=== PATIENT | female | born 1945 | race Caucasian/White ===

== ENCOUNTER 2022-04-09 12:29 | Inpatient (IN) | payer MEDICARE, MEDICAID ==
[~2022-04-09] VITALS: Ht 162.6 cm; Wt 68.0 kg
[2022-04-09] MEDS ORDERED: IV NS 0.9% 1,000 ML BAG IV ONE (13:00)
--- NOTE | 2022-04-09 13:09 | NUR ---
COVID SWAB COLLECTED AND SENT TO LAB
--- NOTE | 2022-04-09 13:25 | NUR ---
PHLEB AT BEDSIDE FOR BLOOD DRAW
--- NOTE | 2022-04-09 13:30 | NUR ---
MANAGER DRILLING AT BEDSIDE FOR XRAY
[2022-04-09] MEDS ORDERED: FERR325T23 PO (13:36)
[2022-04-09] MEDS ORDERED: PANT40SU PO (13:36)
[2022-04-09] MEDS ORDERED: DOCU-141 PO (13:36)
[2022-04-09] MEDS ORDERED: METO25TA6 PO (13:36)
[2022-04-09] MEDS ORDERED: AMLO5TAB4 PO (13:36)
[2022-04-09] MEDS ORDERED: HYDR-4076 PO (13:36)
[2022-04-09] MEDS ORDERED: LOSA50TA39 PO (13:36)
[2022-04-09] MEDS ORDERED: BISA10SU11 RC (13:36)
[2022-04-09] MEDS ORDERED: EZET10TA16 PO (13:36)
[2022-04-09] MEDS ORDERED: TRAV5DRO11 EACHEYE (13:36)
[2022-04-09] MEDS ORDERED: DEXT15DR6 EACHEYE (13:36)
[2022-04-09] MEDS ORDERED: NA P133E RC (13:36)
[2022-04-09] MEDS ORDERED: MAGN400O6 PO (13:36)
[2022-04-09] MEDS ORDERED: METF-440 PO (13:36)
[2022-04-09] MEDS ORDERED: RIVA10TA PO (13:36)
[2022-04-09] MEDS ORDERED: CHOL500052 PO (13:36)
[2022-04-09] MEDS ORDERED: MULT-447 PO (13:36)
[2022-04-09] MEDS ORDERED: ACET325T53 PO (13:36)
[2022-04-09 13:47] LABS: BASOPHILS % (AUTO) 0.3 % (0.0-2.0); EOSINOPHILS % (AUTO) 3.6 % (0.0-6.0); HEMATOCRIT 35 % (33-45); HEMOGLOBIN 10.5 g/dL (11.5-14.8); LYMPHOCYTES # (AUTO) 3.8 K/uL (0.8-4.8); LYMPHOCYTES % (AUTO) 33.6 % (20.0-44.0); MEAN CORPUSCULAR HGB CONC 30 g/dl (31.0-36.0); MEAN CORPUSCULAR VOLUME 116 fL (82-100); MONOCYTES # (AUTO) 0.6 K/uL (0.1-1.30); MONOCYTES % (AUTO) 5.3 % (2.0-12.0); NEUTROPHILS # (AUTO) 6.5 K/uL (1.8-8.9); NEUTROPHILS % (AUTO) 57.2 % (43.0-81.0); PLATELET COUNT (AUTO) 428 K/uL (150-450); RED BLOOD CELL COUNT(AUTO) 3.06 MIL/uL (4.0-5.2); WHITE BLOOD COUNT (AUTO) 11.4 K/uL (4.3-11.0)
[2022-04-09 15:04] LABS: BILIRUBIN,DIRECT 0.3 mg/dL (0.0-0.2); BILIRUBIN,TOTAL 0.6 mg/dL (0.2-1.0); CALCIUM, SERUM 7.2 mg/dL (8.5-10.1); CREATININE 1.1 mg/dL (0.6-1.3); POTASSIUM 3.9 mmol/L (3.5-5.1); TOTAL PROTEIN, SERUM 5.6 g/dL (6.4-8.2)
[2022-04-09 15:07] LABS: ALBUMIN 0.9 g/dL (3.4-5.0)
--- NOTE | 2022-04-09 16:03 | NUR ---
URINE COLLECTED AND SENT TO THE LAB
[2022-04-09 16:48] LABS: BILIRUBIN,URINE 1+ (NEGATIVE); COLOR,URINE YELLOW (YELLOW); LEUKOCYTE ESTERASE ,URINE NEGATIVE (NEGATIVE); NITRITE, URINE NEGATIVE (NEGATIVE); PH,URINE 5.5 (5.0-8.0); PROTEIN,URINE NEGATIVE (NEGATIVE); UGLUCOSE NEGATIVE (NEGATIVE); UROBILINOGEN,URINE 0.2 EU/dL (0.2)
--- NOTE | 2022-04-09 16:50 | NUR ---
ROOM 310-2
[2022-04-09 17:01] LABS: BACTERIA,URINE RARE /HPF (None Seen); RBC,URINE 0-2 /HPF (0-2); SQUAMOUS EPITHELIAL CELL,UR 0-2 /HPF (None Seen); WBC,URINE 0-2 /HPF (0-3)
--- NOTE | 2022-04-09 17:10 | NUR ---
PT REPORT GIVEN TO RUBENS PICKARD
[2022-04-09 17:14] LABS: BAND % (MANUAL) 1 % (0.0-5.0); LYMPHOCYTES % (MANUAL) 22 % (16-48); MONOCYTES % (MANUAL) 3 % (0-11.0); NEUTROPHILS % (MANUAL) 74 (42-76)
--- NOTE | 2022-04-09 17:14 | NUR ---
PT TRANSFERRED TO 310-2 VIA [facility] ACLS PROTOCOL. WARM HANDOFF GIVEN TO RUBENS PICKARD.
[2022-04-09 17:15] VITALS: BP 89/68
[2022-04-09] MEDS ORDERED: ACETAMINOPHEN 325 MG TABLET PO PRN (18:00)
[2022-04-09] MEDS ORDERED: CEFTRIAXONE 1GM BAG (ER ONLY) 50 ML IV ONE (18:00)
[2022-04-09] MEDS ORDERED: MAGNESIUM HYDROXIDE 30 ML UDC PO PRN (18:00)
[2022-04-09] MEDS ORDERED: AZITHROMYCIN 500 MG in IV D5W 250 ML IV ONE (18:00)
[2022-04-09] MEDS ORDERED: Z GUARD REMEDY 4 OZ OINT TP PRN (18:00)
[2022-04-09] MEDS ORDERED: ONDANSETRON HCL/PF 4 MG/2 ML VIAL IVP PRN (18:00)
--- NOTE | 2022-04-09 19:00 | NUR ---
TEL RN ADMITTING NOTES RECIEVED PATIENT FROM ER VIA [place] , WITH DX OF FAILURE TO THRIVE , FULL CODE , A/O X0 , NON VERBAL AND OPEN EYES ONLY , ROOM AIR AND TOLERATED WELL , NO OB OR DISTRESS NOTED AND NO S/S OF PAIN AND DISCOMFORT NOTED , BODY ASSESSMENT DONE AND PHOTOS WERE TAKEN , KEPT CLEAN AND DRY , V/S TAKEN AND RECORDED , TELE MONITOR ATTACHED READING OF SR WITH BBB PAC AND HR OF 82 , SACRAL DTI , BOTH HEEL REDNESS , LEFT FOOT DTI SITE #1 AND 2 AND RIGHT FOOT DTI SITE #1 AND 2 AND WOUND CONSULT ORDERED , IV ACCESS ON LAC #20G , SAFETY PRECAUTIONS PROVIDED , SR UP X 2 , KEPT COMFORTABLE TO BED , FAMILY AT BEDSIDE , ALL NEEDS ATTENDED , ENDORSED TO NEXT SHIFT
[2022-04-09 20:00] VITALS: BP 149/97
--- NOTE | 2022-04-09 20:00 | NUR ---
MS TIE BUCKER INITIAL NOTES RECEIVED PT LYING IN BED WITH EYES CLOSED BUT AROUSE EASILY WHEN YOU CALLED HER NAME AND TOUCH. RESPIRATION EVEN AND NON-LABORED. SKIN WARM TO TOUCH. NOT IN ANY ACUTE DISTRESS NOTED. RE-ORIENTED WHERE SHE AT AND HOW TO USED THE CALL LIGHT SYSTEM. KEPT HER WARM AND COMFORTABLE AT ALL TIMES. BED IN LOW AND LOCK IN POSITION WITH SIDE RAILS X2 UP AND BED ALARM SET FOR SAFETY. WILL CONTINUE MONITORING.
[2022-04-09] MEDS: IV D5/0.45 NACL 1,000 ML IV PRN (21:22)
[2022-04-09] MEDS: EZETIMIBE 10 MG TABLET PO SCH (21:36)
[2022-04-09] MEDS: hydrALAZINE HCL 25 MG TABLET PO SCH (21:36)
[2022-04-09] MEDS: HEPARIN SODIUM, PORCINE 5000 UNITS/1 ML VIAL SQ SCH (21:37)
[2022-04-09] MEDS: CEFTRIAXONE 1 G in IV D5W 50 ML IV SCH (21:52)
[2022-04-09] MEDS ORDERED: TRAVOPROST (BENZALKONIUM) 2.5 ML BOTTLE EACHEYE SCH (22:00)
--- NOTE | 2022-04-10 | NUR ---
GLOBAL CEO NOTES PT SLEEPING COMFORTABLY IN BED WITHOUT ANY ACUTE DISTRESS NOTED. IVF STILL INFUSING. KEPT HER WARM AND COMFORTABLE AT ALL TIMES. WILL CONTINUE MONITORING.
[2022-04-10] MEDS ORDERED: KEY,NONCONTROL,TO KEEP IN PYXI 1 EA MC ONE (01:10)
--- NOTE | 2022-04-10 06:54 | NUR ---
MS MINI LAB OPERATOR CLOSING NOTES PT BACK TO SLEEP AFTER SPONGES BATH RENDERED . REPOSITION HER FOR COMFORT. STABLE THROUGHOUT THE NIGHT. NO SIGNS OF ANY ACUTE DISTRESS NOTED. IVF D51/2 NS AT 50ML/HR STILL INFUSING . KEPT HER WARM AND COMFORTABLE AT ALL TIMES. BED IN LOW AND LOCK IN POSITION WITH SIDE RAILS X3 UP AND BED ALARM SET FOR SAFETY. WILL ENDORSE TO AM NURSE FOR CONTINUITY OF CARE.
--- NOTE | 2022-04-10 07:20 | NUR ---
ms rn received on bed, sleeping easily arousable, not in any form of distress,respirations even and unlabored, no son noted, lungs are diminish sounds,no s/sof pain at this time, repositioned for comfort,all needs attended.
--- NOTE | 2022-04-10 08:20 | NUR ---
ms rn was seen by speesch therapist, no way patient can swallow.
[2022-04-10 08:32] VITALS: BP 112/66
--- NOTE | 2022-04-10 08:56 | NUR ---
WOUND CARE CONSULT: PT PRESENTS WITH UPPER EXTREMITY DISCOLORATION, SACRAL SCARRING WHICH IS FRAGILE AND HAS SURROUNDING INTACT DEEP TISSUE INJURY, DEEP TISSUE INJURIES TO FEET AND LOWER EXTREMITY CONTRACTURES. DR ROY AND DR OCHOA CALLED FOR SURGICAL AND DPM CONSULTS. DISCUSSED SKIN PROTECTION WITH NURSING STAFF. PT TO BE PLACED ON NEIL ISOFLEX LOW AIRLOSS BED. MD IN AGREEMENT WITH PLAN OF CARE.
[2022-04-10] MEDS: FERROUS SULFATE UDC 300 MG/5 ML UDC PO SCH (09:00)
[2022-04-10] MEDS: MULTIVIT W/MINERALS 1 TAB TABLET PO SCH (09:00)
[2022-04-10] MEDS: POLYVINYL ALCOHOL 15 ML BOTTLE EACHEYE SCH ×3 (09:00→18:59)
[2022-04-10] MEDS: hydrALAZINE HCL 25 MG TABLET PO SCH ×4 (09:00→20:51)
[2022-04-10] MEDS: LOSARTAN POTASSIUM 50 MG TABLET PO SCH ×2 (09:00→17:00)
[2022-04-10] MEDS: DOCUSATE SODIUM 100 MG CAPSULE PO SCH ×2 (09:00→17:00)
[2022-04-10] MEDS ORDERED: CHOLECALCIFEROL 1,000 UNIT TABLET (VIT D3) PO SCH (09:00)
[2022-04-10] MEDS: AMLODIPINE BESYLATE 5 MG TABLET PO SCH (09:00)
[2022-04-10] MEDS ORDERED: PANTOPRAZOLE 40 MG/PACK PACK PO SCH (09:00)
[2022-04-10] MEDS: RIVAROXABAN 10 MG TABLET PO SCH ×2 (09:00→17:00)
[2022-04-10] MEDS: METOPROLOL TARTRATE 25 MG TABLET PO SCH ×2 (09:00→17:00)
[2022-04-10] MEDS: METFORMIN 500 MG TABLET PO SCH ×2 (09:00→17:00)
--- NOTE | 2022-04-10 09:00 | NUR ---
ms rn held medications at this time, patient's daughter, wanted to speak w/ tyson, gave daughter's tel number,tyson will call her,.
[2022-04-10 09:27] LABS: BASOPHILS % (AUTO) 0.3 % (0.0-2.0); EOSINOPHILS % (AUTO) 2.7 % (0.0-6.0); HEMATOCRIT 32 % (33-45); HEMOGLOBIN 9.8 g/dL (11.5-14.8); LYMPHOCYTES # (AUTO) 2.6 K/uL (0.8-4.8); LYMPHOCYTES % (AUTO) 19.5 % (20.0-44.0); MEAN CORPUSCULAR HGB CONC 30 g/dl (31.0-36.0); MEAN CORPUSCULAR VOLUME 112 fL (82-100); MONOCYTES # (AUTO) 0.5 K/uL (0.1-1.30); MONOCYTES % (AUTO) 3.8 % (2.0-12.0); NEUTROPHILS % (AUTO) 73.7 % (43.0-81.0); PLATELET COUNT (AUTO) 430 K/uL (150-450); RED BLOOD CELL COUNT(AUTO) 2.87 MIL/uL (4.0-5.2); WHITE BLOOD COUNT (AUTO) 13.6 K/uL (4.3-11.0)
[2022-04-10] MEDS: HEPARIN SODIUM, PORCINE 5000 UNITS/1 ML VIAL SQ SCH ×2 (09:28→20:51)
[2022-04-10] MEDS: PANTOPRAZOLE 40 MG VIAL IV SCH (09:28)
[2022-04-10 09:38] LABS: CALCIUM, SERUM 6.9 mg/dL (8.5-10.1); CREATININE 1.1 mg/dL (0.6-1.3); MAGNESIUM 2.3 mg/dL (1.8-2.4); POTASSIUM 3.2 mmol/L (3.5-5.1)
[2022-04-10 09:50] LABS: THYROID STIMULATING HORMONE 1.829 uIU/mL (0.358-3.74)
--- NOTE | 2022-04-10 11:10 | NUR ---
ms rn spoke w/ clark, daughter, will let tyson call her.
--- NOTE | 2022-04-10 16:00 | NUR ---
ms rn midline placed to right upper arm w/ good venous return.
[2022-04-10 16:21] VITALS: BP 123/68
--- NOTE | 2022-04-10 19:35 | NUR ---
MS RN NOTES RECEIVED LAYING ON BED ON LEFT SIDE POSITION,BREATHING NON LABORED,NON VERBAL,OPEN EYES.NPO EXCEPT MEDS,PRESENT IVF INFUSING ON LEFT AC VIA IV PUMP,SITE PATENT,NO S/S OF INFILTRATION NOTED.WILL REPOSITION PER PROTOCOL,WILL CONTINUE TO MONITOR STATUS.
[2022-04-10 20:00] VITALS: BP 131/68
[2022-04-10] MEDS: CEFTRIAXONE 1 G in IV D5W 50 ML IV SCH (20:15)
[2022-04-10] MEDS: IV D5/0.45 NACL 1,000 ML IV PRN (20:17)
--- NOTE | 2022-04-10 21:00 | NUR ---
MS RN NOTES SUNNI APRESOLINE 25MG PO AND ZETIA 10MG PO HELD,PATIENT FAILED SWALLOW EVAL PER SPEECH THERAPIST.PRONE TO ASPIRATION
[2022-04-10] MEDS: LATANOPROST EYE DROP 0.005% 2.5 ML BOTTLE EACHEYE SCH (21:10)
[2022-04-10] MEDS: EZETIMIBE 10 MG TABLET PO SCH (21:11)
--- NOTE | 2022-04-11 07:02 | NUR ---
MS RN NOTES NO SIGNIFICANT CHANGE IN STATUS.IVF INFUSING WELL ON LFA MIDLINE.MORNING CARE RENDERED,KEPT NPO,ASPIRATION PRECAUTION.IN NO ACUTE DISTRESS.
--- NOTE | 2022-04-11 07:15 | NUR ---
ms rn patient on bed, awake, non verbal patient, not in any form of distress, respirations even and unlabored,no sob noted, left arm edema noted, repositioned for comfort,all needs attended.
[2022-04-11 08:28] VITALS: BP 122/68
[2022-04-11 08:33] LABS: BASOPHILS % (AUTO) 0.4 % (0.0-2.0); EOSINOPHILS % (AUTO) 4.2 % (0.0-6.0); HEMATOCRIT 28 % (33-45); HEMOGLOBIN 8.7 g/dL (11.5-14.8); LYMPHOCYTES # (AUTO) 2.9 K/uL (0.8-4.8); LYMPHOCYTES % (AUTO) 26.9 % (20.0-44.0); MEAN CORPUSCULAR HGB CONC 32 g/dl (31.0-36.0); MEAN CORPUSCULAR VOLUME 110 fL (82-100); MONOCYTES # (AUTO) 0.6 K/uL (0.1-1.30); MONOCYTES % (AUTO) 5.5 % (2.0-12.0); NEUTROPHILS # (AUTO) 6.7 K/uL (1.8-8.9); PLATELET COUNT (AUTO) 371 K/uL (150-450); RED BLOOD CELL COUNT(AUTO) 2.51 MIL/uL (4.0-5.2); WHITE BLOOD COUNT (AUTO) 10.6 K/uL (4.3-11.0)
--- NOTE | 2022-04-11 08:50 | NUR ---
ms rn received a critical k result,na and chloride, tyson angela made aware.
[2022-04-11 08:57] LABS: CREATININE 1.1 mg/dL (0.6-1.3); PHOSPHORUS 2.7 mg/dL (2.5-4.9)
[2022-04-11] MEDS: MULTIVIT W/MINERALS 1 TAB TABLET PO SCH (09:00)
[2022-04-11] MEDS: LOSARTAN POTASSIUM 50 MG TABLET PO SCH ×2 (09:00→16:36)
[2022-04-11] MEDS: METFORMIN 500 MG TABLET PO SCH ×2 (09:00→17:00)
[2022-04-11] MEDS: FERROUS SULFATE UDC 300 MG/5 ML UDC PO SCH (09:00)
[2022-04-11] MEDS: RIVAROXABAN 10 MG TABLET PO SCH ×2 (09:00→17:00)
[2022-04-11] MEDS: METOPROLOL TARTRATE 25 MG TABLET PO SCH ×2 (09:00→16:36)
[2022-04-11] MEDS: DOCUSATE SODIUM 100 MG CAPSULE PO SCH ×2 (09:00→17:00)
[2022-04-11] MEDS: AMLODIPINE BESYLATE 5 MG TABLET PO SCH (09:00)
[2022-04-11] MEDS: hydrALAZINE HCL 25 MG TABLET PO SCH ×4 (09:00→21:00)
[2022-04-11 09:09] LABS: POTASSIUM 2.8 mmol/L (3.5-5.1)
[2022-04-11] MEDS: PANTOPRAZOLE 40 MG VIAL IV SCH (09:53)
[2022-04-11] MEDS: HEPARIN SODIUM, PORCINE 5000 UNITS/1 ML VIAL SQ SCH ×2 (09:54→21:19)
--- NOTE | 2022-04-11 10:00 | NUR ---
ms rn other daughter in the room asking to call clark first before ngt insertion, called clark will wait to call back.
[2022-04-11] MEDS: ENSURE CLEAR 237 ML LIQUID (MIX BERRY) PO SCH ×3 (11:00→19:00)
[2022-04-11] MEDS ORDERED: POTASSIUM CL. PREMIX PERIPHER. 50 ML IV SCH (11:00)
--- NOTE | 2022-04-11 11:00 | NUR ---
ms anusha mehta texted back w/ new orders made and carried out.
[2022-04-11] MEDS: POLYVINYL ALCOHOL 15 ML BOTTLE EACHEYE SCH ×3 (11:14→16:55)
[2022-04-11] MEDS: Potassium Chloride 20 MEQ in IV D5W 1,000 ML IV SCH (12:23)
--- NOTE | 2022-04-11 16:00 | NUR ---
ms rn spoke w/ daughter Katelyn , that we need to insert ngt to her mom, for water therapy,na is high and was agreed.
[2022-04-11 16:10] VITALS: BP 95/50
--- NOTE | 2022-04-11 17:29 | NUR ---
ms anusha ngt inserted,called xray for placement confirmation.
--- NOTE | 2022-04-11 18:05 | NUR ---
ms rn waiting for xray result.
--- NOTE | 2022-04-11 18:17 | NUR ---
ms rn held b/p meds, b/p on lower side, held colace, having loose stools, held xarelto, needs to verify md, patient already on heparin q 12 hours, held glucophage, patient not eating,will monitor patient.
--- NOTE | 2022-04-11 19:30 | NUR ---
MS RN OPENING NOTES Received patient on bed, awake and non verbal. No any signs of distress noted. Respirations even and unlabored. No sob noted. Safety measures given with bed on low position and locked. Side rails up x 2. Call light placed within reach. Will continue the plan of care.
[2022-04-11] MEDS: CEFTRIAXONE 1 G in IV D5W 50 ML IV SCH (19:31)
[2022-04-11 20:00] VITALS: BP 100/55
--- NOTE | 2022-04-11 21:00 | NUR ---
MS RN NOTES Withheld bp meds due to low bp
[2022-04-11] MEDS: LATANOPROST EYE DROP 0.005% 2.5 ML BOTTLE EACHEYE SCH (21:18)
[2022-04-11] MEDS: EZETIMIBE 10 MG TABLET PO SCH (21:19)
[2022-04-12] MEDS: Potassium Chloride 20 MEQ in IV D5W 1,000 ML IV SCH ×2 (02:50→16:45)
--- NOTE | 2022-04-12 06:30 | NUR ---
MS RN CLOSING NOTES Patient on bed awake, opening eyes and non verbal. No any signs of distress noted. Respirations even and unlabored. No sob noted. Patient has MIDLINE at VALE with K Cl 20meq D5W running 70mls/hr, infusing well. Has NGT at the L nares. Safety measures given with bed on low position and locked. Side rails up x 2. Call light placed within reach. Will endorse to the next shift for continuity of care.
[2022-04-12 06:31] LABS: BASOPHILS % (AUTO) 0.4 % (0.0-2.0); EOSINOPHILS % (AUTO) 4.5 % (0.0-6.0); HEMATOCRIT 29 % (33-45); HEMOGLOBIN 9.1 g/dL (11.5-14.8); LYMPHOCYTES # (AUTO) 3.6 K/uL (0.8-4.8); LYMPHOCYTES % (AUTO) 36.4 % (20.0-44.0); MEAN CORPUSCULAR HGB CONC 31 g/dl (31.0-36.0); MEAN CORPUSCULAR VOLUME 114 fL (82-100); MONOCYTES # (AUTO) 0.6 K/uL (0.1-1.30); MONOCYTES % (AUTO) 6.4 % (2.0-12.0); NEUTROPHILS # (AUTO) 5.1 K/uL (1.8-8.9); NEUTROPHILS % (AUTO) 52.3 % (43.0-81.0); PLATELET COUNT (AUTO) 240 K/uL (150-450); RED BLOOD CELL COUNT(AUTO) 2.59 MIL/uL (4.0-5.2); WHITE BLOOD COUNT (AUTO) 9.8 K/uL (4.3-11.0)
--- NOTE | 2022-04-12 07:15 | NUR ---
ms rn received on bed, nonverbal,responsive to stimuli, not in any form of distress, respirations even and unlabored breathing, no sob noted, ngt intact and in place w/o residual.repositioned for comfort,all needs attended.
[2022-04-12 07:35] LABS: CALCIUM, SERUM 6.9 mg/dL (8.5-10.1); CREATININE 1.1 mg/dL (0.6-1.3); MAGNESIUM 1.9 mg/dL (1.8-2.4); PHOSPHORUS 2.6 mg/dL (2.5-4.9); POTASSIUM 3.8 mmol/L (3.5-5.1)
[2022-04-12 08:00] VITALS: BP 110/60
[2022-04-12] MEDS: ENSURE CLEAR 237 ML LIQUID (MIX BERRY) PO SCH ×4 (08:00→16:26)
[2022-04-12] MEDS: DOCUSATE SODIUM 100 MG CAPSULE PO SCH ×3 (09:00→16:26)
[2022-04-12] MEDS: METFORMIN 500 MG TABLET PO SCH ×2 (09:00→16:27)
[2022-04-12] MEDS: RIVAROXABAN 10 MG TABLET PO SCH ×2 (09:00→16:27)
--- NOTE | 2022-04-12 09:40 | NUR ---
ms rn due meds given via ngt, daughter at bedside.
[2022-04-12] MEDS: FERROUS SULFATE UDC 300 MG/5 ML UDC PO SCH (09:55)
[2022-04-12] MEDS: MULTIVIT W/MINERALS 1 TAB TABLET PO SCH (09:55)
[2022-04-12] MEDS: hydrALAZINE HCL 25 MG TABLET PO SCH ×4 (09:55→21:00)
[2022-04-12] MEDS: AMLODIPINE BESYLATE 5 MG TABLET PO SCH (09:56)
[2022-04-12] MEDS: METOPROLOL TARTRATE 25 MG TABLET PO SCH ×2 (09:56→16:27)
[2022-04-12] MEDS: PANTOPRAZOLE 40 MG VIAL IV SCH (09:56)
[2022-04-12] MEDS: LOSARTAN POTASSIUM 50 MG TABLET PO SCH ×2 (09:56→16:26)
[2022-04-12] MEDS: HEPARIN SODIUM, PORCINE 5000 UNITS/1 ML VIAL SQ SCH ×2 (09:57→21:00)
[2022-04-12] MEDS: POLYVINYL ALCOHOL 15 ML BOTTLE EACHEYE SCH ×3 (11:09→16:53)
--- NOTE | 2022-04-12 11:20 | NUR ---
ms rn texted Jolanta angela, family/daughter agreed to do gtube placement.
--- NOTE | 2022-04-12 12:50 | NUR ---
ms furnace operator consented for gtube placement,Jolanta is aware.
[2022-04-12 16:00] VITALS: BP 106/66
--- NOTE | 2022-04-12 16:27 | NUR ---
ms rn npo at this time, g tube plcement will be done today per .
--- NOTE | 2022-04-12 19:00 | NUR ---
MS RN CLOSING NOTES PATIENT LAYING IN BED, ALERT BUT NON-VERBAL, TOLERATING WELL ON ROOM AIR WITH NO S/S RESPIRATORY DISTRESS. NO COMPLAINTS OF PAIN OR DISCOMFORT AT THIS TIME. NG TUBE IN PLACE IN L NARE, CLAMPED. VALE MIDLINE IN PLACE WITH D5W + 20 MEQ POTASSIUM INFUSING @ 70 ML/HR. SAFETY MEASURES IN PLACE: BED IN LOWEST LOCKED POSITION, SIDE RAILS UP X 2, CALL LIGHT WITHIN REACH. ALL NEEDS MET. WILL ENDORSE TO TURN OPERATOR FOR MIKAELA.
--- NOTE | 2022-04-12 19:30 | NUR ---
MS OSCAR INITIAL NOTES RECEIVED REPORT FROM AM NURSE SAÚL AND CHECKED PT SHE'S LYING IN BED WITH EYES CLOSED AROUSE TO TOUCH . RESPIRATION EVEN AND UNLABORED, NOT IN ANY ACUTE DISTRESS NOTED STILL IVF OF D51/2 NS +20MEQ K at 70ml/hr INFUSING ON HER RIGHT UPPER ARM MIDLINE,PATENT AND INTACT. NOTICED HER LEFT ARM SWOLLEN REPOSITION ON PILLOWS . KEPT HER WARM AND COMFORTABLE AT ALL TIMES. WILL CONTINUE MONITORING.
[2022-04-12 20:00] VITALS: BP 95/47
[2022-04-12] MEDS: CEFTRIAXONE 1 G in IV D5W 50 ML IV SCH (21:08)
[2022-04-12] MEDS: EZETIMIBE 10 MG TABLET PO SCH (22:00)
[2022-04-12] MEDS: LATANOPROST EYE DROP 0.005% 2.5 ML BOTTLE EACHEYE SCH (22:51)
--- NOTE | 2022-04-13 | NUR ---
ms family mediator notes pt seen in bed respiration even and unlabored, not in any acute distress noted. Skin warm to touch, reposition her for comfort. kept her warm and comfortable at all times. IVF still infusing patent and intact. will continue monitoring.
[2022-04-13 06:41] LABS: BASOPHILS % (AUTO) 0.2 % (0.0-2.0); EOSINOPHILS % (AUTO) 4.8 % (0.0-6.0); HEMATOCRIT 28 % (33-45); HEMOGLOBIN 8.8 g/dL (11.5-14.8); LYMPHOCYTES # (AUTO) 2.7 K/uL (0.8-4.8); LYMPHOCYTES % (AUTO) 32.7 % (20.0-44.0); MEAN CORPUSCULAR HGB CONC 32 g/dl (31.0-36.0); MEAN CORPUSCULAR VOLUME 115 fL (82-100); MONOCYTES # (AUTO) 0.6 K/uL (0.1-1.30); MONOCYTES % (AUTO) 7.5 % (2.0-12.0); NEUTROPHILS # (AUTO) 4.5 K/uL (1.8-8.9); NEUTROPHILS % (AUTO) 54.8 % (43.0-81.0); PLATELET COUNT (AUTO) 295 K/uL (150-450); RED BLOOD CELL COUNT(AUTO) 2.41 MIL/uL (4.0-5.2); WHITE BLOOD COUNT (AUTO) 8.1 K/uL (4.3-11.0)
[2022-04-13 07:01] LABS: CALCIUM, SERUM 6.8 mg/dL (8.5-10.1); CREATININE 0.9 mg/dL (0.6-1.3); MAGNESIUM 1.9 mg/dL (1.8-2.4); PHOSPHORUS 2.5 mg/dL (2.5-4.9); POTASSIUM 3.5 mmol/L (3.5-5.1)
--- NOTE | 2022-04-13 07:31 | NUR ---
ms automotive warranty administrator closing notes pt stable throughout the night. no aspiration noted. IVF still infusing. kept her warm and comfortable at all times. reposition pt for comfort. will endorse to am nurse for continuity of care.
--- NOTE | 2022-04-13 07:39 | NUR ---
RN OPENING NOTES RECEIVED PATIENT ASLEEP. NON-VERBAL ONLY OPEN EYES. WITH NGT ON LEFT NARES. AT ROOM AIR. WITH ONGOING D5 NS WITH 1/2 20MEQS KCL AT 70ML/HR INFUSING WELL AT RIGHT MIDLINE. MAINTAINED ON BED REST. NOTED SACRAL SCAR AND DTI.SAFETY PRECAUTIONS MAINTAINED. BED PLACED AT LOWEST POSITION, SR UP ALL TIMES/. CALL LIGHT WITHIN REACH WILL CONTINUE TO MONITOR PATIENT ACCORDINGLY.
[2022-04-13] MEDS: ENSURE CLEAR 237 ML LIQUID (MIX BERRY) PO SCH ×3 (08:00→17:21)
[2022-04-13] MEDS: Potassium Chloride 20 MEQ in IV D5W 1,000 ML IV SCH ×2 (08:04→21:17)
[2022-04-13 08:12] VITALS: BP 90/44
[2022-04-13] MEDS: AMLODIPINE BESYLATE 5 MG TABLET PO SCH (09:00)
[2022-04-13] MEDS: LOSARTAN POTASSIUM 50 MG TABLET PO SCH ×2 (09:00→16:51)
[2022-04-13] MEDS: METOPROLOL TARTRATE 25 MG TABLET PO SCH ×2 (09:00→16:52)
[2022-04-13] MEDS: METFORMIN 500 MG TABLET PO SCH ×2 (09:00→16:55)
[2022-04-13] MEDS: hydrALAZINE HCL 25 MG TABLET PO SCH ×4 (09:00→21:00)
[2022-04-13] MEDS: HEPARIN SODIUM, PORCINE 5000 UNITS/1 ML VIAL SQ SCH ×2 (09:00→21:00)
[2022-04-13] MEDS: FERROUS SULFATE UDC 300 MG/5 ML UDC PO SCH (09:00)
[2022-04-13] MEDS: DOCUSATE SODIUM 100 MG CAPSULE PO SCH ×2 (09:00→16:55)
[2022-04-13] MEDS: PANTOPRAZOLE 40 MG TABLET.DR PO SCH (09:00)
[2022-04-13] MEDS: MULTIVIT W/MINERALS 1 TAB TABLET PO SCH (09:00)
[2022-04-13] MEDS: RIVAROXABAN 10 MG TABLET PO SCH ×2 (09:00→16:54)
--- NOTE | 2022-04-13 09:16 | NUR ---
RN NOTES HEPARIN SCHEDULED AT 0900 HELD FOR POSSIBLE SURGERY TODAY.
[2022-04-13] MEDS: POLYVINYL ALCOHOL 15 ML BOTTLE EACHEYE SCH ×3 (09:18→17:14)
[2022-04-13 10:46] LABS: EOSINOPHILS % (MANUAL) 1 % (0-4); LYMPHOCYTES % (MANUAL) 25 % (16-48); MONOCYTES % (MANUAL) 9 % (0-11.0); NEUTROPHILS % (MANUAL) 65 (42-76)
[2022-04-13] MEDS: JEVITY 1.2 CAL 1,000 ML BOTTLE NG PRN (12:47)
--- NOTE | 2022-04-13 14:11 | NUR ---
RN NOTES NASOGASTRIC TUBE FEEDING RESUMED. FOR G-TUBE PLACEMENT AT 8:00 ON 04/14/2022. NPO MIDNIGHT
--- NOTE | 2022-04-13 15:37 | NUR ---
RN NOTE Per instruction from Jolanta Steven NP, hold Heparin scheduled for 2100. Will relay to network support manager nurse.
[2022-04-13 16:36] VITALS: BP 90/52
--- NOTE | 2022-04-13 19:09 | NUR ---
RN CLOSING NOTES PATIENT LYING IN BED ASLEEP. NON-VERBAL ABLE TO OPEN EYES. ABLE TO TOLERATE ROOM AIR. NO S/S OF RESPIRATORY DISTRESS AND ASPIRATION NOTED. WITH ONGOING NASOGASTRIC TUBE FEEDING JEVITY RUNNING AT 30ML/HR. IVF AT RAC D5 1/ NS WITH 20 MEQS KCL AT 70ML/HR. FOR G-TUBE PLACEMENT AT 6:30 ON 04/14/2022. PATIENT WILL BE NPO AT POST MIDNIGHT FOR SURGERY. SAFETY PRECAUTIONS MAINTAINED. ALL NEEDS MET. WILL ENDORSED TO BANKMAN FOR MIKAELA.
--- NOTE | 2022-04-13 19:50 | NUR ---
RN OPENING NOTE RECEIVED PATIENT ASLEEP. NON-VERBAL ONLY OPEN EYES. PT HAS NG TUBE TO LEFT NARES. ON ROOM AIR, AND TOLERATING RA WELL. MIDLINE TO VALE RUNNING D5 NS WITH 1/2 20 MEQ KCL AT 70ML/HR, INFUSING WELL. NOTED SACRAL SCAR AND DTI. SAFETY PRECAUTIONS MAINTAINED. BED AT LOWEST POSITION, SR UP X2. CALL LIGHT WITHIN REACH. WILL CONTINUE TO MONITOR PATIENT ACCORDINGLY.
[2022-04-13 20:00] VITALS: BP 98/56
[2022-04-13] MEDS: CEFTRIAXONE 1 G in IV D5W 50 ML IV SCH (20:59)
[2022-04-13] MEDS: EZETIMIBE 10 MG TABLET PO SCH (21:17)
[2022-04-13] MEDS: LATANOPROST EYE DROP 0.005% 2.5 ML BOTTLE EACHEYE SCH (21:18)
[2022-04-14 06:42] LABS: BASOPHILS % (AUTO) 0.3 % (0.0-2.0); EOSINOPHILS % (AUTO) 4.1 % (0.0-6.0); HEMATOCRIT 27 % (33-45); HEMOGLOBIN 8.7 g/dL (11.5-14.8); LYMPHOCYTES # (AUTO) 2.4 K/uL (0.8-4.8); LYMPHOCYTES % (AUTO) 33.5 % (20.0-44.0); MEAN CORPUSCULAR HGB CONC 32 g/dl (31.0-36.0); MEAN CORPUSCULAR VOLUME 111 fL (82-100); MONOCYTES # (AUTO) 0.7 K/uL (0.1-1.30); MONOCYTES % (AUTO) 9.4 % (2.0-12.0); NEUTROPHILS # (AUTO) 3.9 K/uL (1.8-8.9); NEUTROPHILS % (AUTO) 52.7 % (43.0-81.0); PLATELET COUNT (AUTO) 289 K/uL (150-450); RED BLOOD CELL COUNT(AUTO) 2.44 MIL/uL (4.0-5.2); WHITE BLOOD COUNT (AUTO) 7.3 K/uL (4.3-11.0)
--- NOTE | 2022-04-14 06:45 | NUR ---
RN CLOSING NOTE PATIENT LYING IN BED ASLEEP. NON-VERBAL ABLE TO OPEN EYES. ABLE TO TOLERATE ROOM AIR. NO S/S OF RESPIRATORY DISTRESS AND ASPIRATION NOTED. PT HAS NASOGASTRIC TUBE FEEDING WITH JEVITY, BUT FEEDING WAS STOPPED SINCE 0000 BECAUSE PT WILL HAVE PEG TUBE PLACEMENT AT 0800. IVF TO VALE D5 1/2 NS WITH 20 MEQS KCL AT 70ML/HR. PATIENT HAS BEEN NPO SINCE MIDNIGHT FOR SURGERY. OR NURSES PRESENT TO CASE LINER PT. PT'S DTR CALLED, AND VERBAL CONSENT RECEIVED FOR BLOOD TRANSFUSION. ALL CONSENT SIGNED, PRE OP CHECK LIST COMPLETED. PATIENT TRANSPORTED VIA GURNEY BY OR NURSE TO OR, TO GET G TUBE PLACED. ALL NEEDS MET. WILL ENDORSED TO MORNING SHIFT NURSE FOR MIKAELA.
--- NOTE | 2022-04-14 07:00 | NUR ---
RN OPENING NOTES PATIENT AT OPERATING ROOM FOR G-TUBE PLACEMENT.
[2022-04-14 07:41] LABS: CREATININE 0.7 mg/dL (0.6-1.3); POTASSIUM 4.2 mmol/L (3.5-5.1)
[2022-04-14] MEDS ORDERED: ANESTHESIA TRAY IN PYXIS 1 EA TRAY MC ONE (07:46)
[2022-04-14] MEDS: ENSURE CLEAR 237 ML LIQUID (MIX BERRY) PO SCH ×2 (08:00→17:00)
[2022-04-14 09:00] VITALS: BP 130/74
[2022-04-14] MEDS: RIVAROXABAN 10 MG TABLET PO SCH ×2 (09:00→17:00)
[2022-04-14] MEDS: HEPARIN SODIUM, PORCINE 5000 UNITS/1 ML VIAL SQ SCH ×2 (09:00→22:30)
--- NOTE | 2022-04-14 09:00 | NUR ---
RN NOTES RECEIVED PATIENT FROM OR S/P G-TUBE PLACEMENT. PEG TUBE SITE IS INTACT NO DISCHARGE AND BLEEDING NOTED. PATIENT IS STABLE WITH VITAL SIGNS FOLLOWS BP: 130/74, OH:82, O2 SAT:100%, RR:20, TEMP:98. [facility]IENT NPO EXCEPT MEDICATIONS. AND TO START TUBE FEEDING TOMR. WILL CONTINUE TO MONITOR
--- NOTE | 2022-04-14 09:15 | NUR ---
RN NOTES PATIENT REMAIN STABLES WITH VITALS SIGNS OF BP:127/74, VA:77, O2 SAT:99, TEMP:98, RR:19. WILL CONTINUE TO MONITOR.
[2022-04-14] MEDS: POLYVINYL ALCOHOL 15 ML BOTTLE EACHEYE SCH ×3 (09:20→16:53)
[2022-04-14] MEDS: hydrALAZINE HCL 25 MG TABLET PO SCH ×4 (09:21→21:00)
[2022-04-14] MEDS: MULTIVIT W/MINERALS 1 TAB TABLET PO SCH (09:21)
[2022-04-14] MEDS: DOCUSATE SODIUM 100 MG CAPSULE PO SCH ×2 (09:22→16:59)
[2022-04-14] MEDS: METFORMIN 500 MG TABLET PO SCH ×2 (09:22→16:53)
[2022-04-14] MEDS: PANTOPRAZOLE 40 MG TABLET.DR PO SCH (09:22)
[2022-04-14] MEDS: LOSARTAN POTASSIUM 50 MG TABLET PO SCH ×2 (09:22→16:53)
[2022-04-14] MEDS: METOPROLOL TARTRATE 25 MG TABLET PO SCH ×2 (09:22→16:54)
[2022-04-14] MEDS: FERROUS SULFATE UDC 300 MG/5 ML UDC PO SCH (09:24)
[2022-04-14] MEDS: AMLODIPINE BESYLATE 5 MG TABLET PO SCH (09:28)
--- NOTE | 2022-04-14 09:30 | NUR ---
RN NOTES PATIENT REMAIN STABLES WITH VITALS SIGNS OF BP:126/76, MN:82, O2 SAT:99, TEMP:98, RR:20. WILL CONTINUE TO MONITOR.
--- NOTE | 2022-04-14 09:45 | NUR ---
RN NOTES PATIENT REMAIN STABLES WITH VITALS SIGNS OF BP:127/74, NJ:84, O2 SAT:100, TEMP:98, RR:20. WILL CONTINUE TO MONITOR.
--- NOTE | 2022-04-14 10:00 | NUR ---
RN NOTES PATIENT REMAIN STABLES WITH VITALS SIGNS OF BP:125/70, MA:84, O2 SAT:99, TEMP:98.2, RR:20. WILL CONTINUE TO MONITOR.
[2022-04-14] MEDS: Potassium Chloride 20 MEQ in IV D5W 1,000 ML IV SCH (12:07)
[2022-04-14 13:00] VITALS: BP 106/62
--- NOTE | 2022-04-14 13:00 | NUR ---
RN NOTES PATIENT BLOOD PRESSURE OF 106/62 MMHG; HYRADRALAZINE HELD FOR NOW. WILL CONTINUE TO MONITOR
[2022-04-14 13:12] LABS: BASOPHILS % (MANUAL) 0 % (0.0-2.0); EOSINOPHILS % (MANUAL) 2 % (0-4); LYMPHOCYTES % (MANUAL) 26 % (16-48); MONOCYTES % (MANUAL) 6 % (0-11.0); NEUTROPHILS % (MANUAL) 66 (42-76)
[2022-04-14 16:00] VITALS: BP 106/60
--- NOTE | 2022-04-14 18:48 | NUR ---
RN CLOSING NOTES PATIENT LAYING ON BED; ASLEEP. WITH ONGOING IVF D5 1/2 NS + 20 MEQS AT 70ML/HR INFUSING WELL. NOTED EDEMA AT BOTH ARMS. STILL ON NPO EXCEPT MEDS. G-TUBE FEEDING RESUMES TOMR. ALL DUE MEDICATIONS GIVEN. PATIENT REMAINED STABLE ALL THOUGHOUT THE SHIFT. ALL NEDDS MET. SAFETY MEASURES MAINTAINED, BED IN LOWEST LOCKED POSITION. SIDE RAILS UP X 3, CALL LIGHT WITHININ REACHED. WILL ENDORSED TO STATISTICIAN FOR MIKAELA.
[2022-04-14 20:00] VITALS: BP 99/56
[2022-04-14] MEDS: CEFTRIAXONE 1 G in IV D5W 50 ML IV SCH (21:57)
--- NOTE | 2022-04-14 22:15 | NUR ---
MSRN NOTIFIED MD REGARDING HEPARIN DOSE FOR TONIGHT, LOW HH. MADE AWARE ALSO REGARDING K LEVEL 4.2 AND IVF HAS 20MEQ IN 1 LITER D5W. AWAITING FOR FURTHER ORDERS.
--- NOTE | 2022-04-14 22:30 | NUR ---
MSRN PER MD HOLD HEPARIN DOSE FOR TONIGHT. IVF CONTINUED
[2022-04-14] MEDS: EZETIMIBE 10 MG TABLET PO SCH (22:46)
[2022-04-14] MEDS: LATANOPROST EYE DROP 0.005% 2.5 ML BOTTLE EACHEYE SCH (22:47)
[2022-04-15] MEDS: Potassium Chloride 20 MEQ in IV D5W 1,000 ML IV SCH (03:44)
[2022-04-15] MEDS: JEVITY 1.2 CAL 1,000 ML BOTTLE NG PRN (05:55)
--- NOTE | 2022-04-15 05:55 | NUR ---
MSRN STARTED GT FEEDING JEVITY AT 20 CC/HR. MAINTAIN HOB 35 DEGREES. AM CARE DONE, REPOSITIONED FOR COMFORT.
[2022-04-15 06:36] LABS: CALCIUM, SERUM 7.1 mg/dL (8.5-10.1); CREATININE 0.7 mg/dL (0.6-1.3); MAGNESIUM 1.9 mg/dL (1.8-2.4); PHOSPHORUS 2.8 mg/dL (2.5-4.9); POTASSIUM 3.8 mmol/L (3.5-5.1)
[2022-04-15 06:38] LABS: BASOPHILS % (AUTO) 0.2 % (0.0-2.0); HEMATOCRIT 27 % (33-45); HEMOGLOBIN 8.7 g/dL (11.5-14.8); LYMPHOCYTES # (AUTO) 2.2 K/uL (0.8-4.8); LYMPHOCYTES % (AUTO) 31.4 % (20.0-44.0); MEAN CORPUSCULAR HGB CONC 33 g/dl (31.0-36.0); MEAN CORPUSCULAR VOLUME 108 fL (82-100); MONOCYTES # (AUTO) 0.7 K/uL (0.1-1.30); MONOCYTES % (AUTO) 9.8 % (2.0-12.0); NEUTROPHILS % (AUTO) 55.6 % (43.0-81.0); PLATELET COUNT (AUTO) 269 K/uL (150-450); RED BLOOD CELL COUNT(AUTO) 2.47 MIL/uL (4.0-5.2); WHITE BLOOD COUNT (AUTO) 7.2 K/uL (4.3-11.0)
--- NOTE | 2022-04-15 07:44 | NUR ---
RN OPENING NOTES RECEIVED PATIENT LYING IN BED. HOOKED TO OXYGEN VIA NASAL CANNULA AT 2LPM. WITH ONGOING IVF OF D2 1/2 PLUS 20 MEQS KCL AT RIGHT MIDLINE INFUSING WELL. WITH ONGOING G-TUBE FEEDING JEVITY 1.2 NO RESIDUAL NOTED. SAFETY PRECAUTIONS MAINTAINED. KEPT SIDE RAILS UP ALL THE TIME X 3. KEPT BED AT LOWEST LOCKED POSITION. WILL CONTINUE TO MONITOR.
[2022-04-15 08:00] VITALS: BP 104/71
[2022-04-15] MEDS ORDERED: JEVITY 1.2 CAL 1,000 ML BOTTLE NG PRN (08:35)
[2022-04-15] MEDS ORDERED: EZETIMIBE 10 MG TABLET NG SCH (08:37)
[2022-04-15] MEDS ORDERED: LOSARTAN POTASSIUM 50 MG TABLET NG SCH (08:37)
[2022-04-15] MEDS ORDERED: METFORMIN 500 MG TABLET NG SCH (08:37)
[2022-04-15] MEDS ORDERED: CHOLECALCIFEROL 1,000 UNIT TABLET (VIT D3) NG SCH (08:38)
[2022-04-15] MEDS ORDERED: RIVAROXABAN 10 MG TABLET NG SCH (08:38)
[2022-04-15] MEDS ORDERED: METOPROLOL TARTRATE 25 MG TABLET NG SCH (08:39)
[2022-04-15] MEDS ORDERED: FERROUS SULFATE UDC 300 MG/5 ML UDC NG SCH (08:39)
[2022-04-15] MEDS ORDERED: MAGNESIUM HYDROXIDE 30 ML UDC NG PRN (08:40)
[2022-04-15] MEDS: hydrALAZINE HCL 25 MG TABLET NG SCH ×2 (09:00→13:03)
[2022-04-15] MEDS: HEPARIN SODIUM, PORCINE 5000 UNITS/1 ML VIAL SQ SCH (09:00)
[2022-04-15] MEDS ORDERED: ACETAMINOPHEN 650 MG/20.3 ML UDC NG PRN (09:00)
[2022-04-15] MEDS ORDERED: PANTOPRAZOLE 40 MG/PACK PACK NG SCH (09:00)
[2022-04-15] MEDS ORDERED: DOCUSATE SODIUM LIQ 100 MG/10 ML UDC NG SCH (09:00)
[2022-04-15] MEDS: AMLODIPINE BESYLATE 5 MG TABLET PO SCH (09:00)
[2022-04-15] MEDS: POLYVINYL ALCOHOL 15 ML BOTTLE EACHEYE SCH ×2 (09:33→12:40)
[2022-04-15] MEDS: MULTIVIT W/MINERALS 1 TAB TABLET PO SCH (09:36)
--- NOTE | 2022-04-15 11:31 | NUR ---
RN NOTES HEPARIN HELP BY ORDERS (DR. ESQUIVEL). WILL CONTINUE TO MONITOR
[2022-04-15 12:09] LABS: BAND % (MANUAL) 2 % (0.0-5.0); EOSINOPHILS % (MANUAL) 4 % (0-4); LYMPHOCYTES % (MANUAL) 19 % (16-48); MONOCYTES % (MANUAL) 5 % (0-11.0); NEUTROPHILS % (MANUAL) 70 (42-76)
[2022-04-15 13:03] VITALS: BP 110/74
--- NOTE | 2022-04-15 15:30 | NUR ---
RN NOTE Called [facility] and spoke to JACQUELINE, Competitive [employer]pper to give patient report.
--- NOTE | 2022-04-15 16:39 | NUR ---
JIG BORER NOTES PATIENT DISCHARGED TO [facility] IN STABLE CONDITION. HOOKED TO OXYGEN VIA NASAL CANNULA AT 2LPM. NON-VERBAL BUT ABLE TO OPEN EYES. RIGHT UPPER ARM MIDLINE REMOVED AND KEPT WITH DRY PRESSURED DRESSING. PATIENT IS A BEDBOUND. NOT IN ANY FORM OF DISTRESS AT THIS TIME. PICTURES OF SACRAL AREA AND LEFT FOOT TAKEN AND PLACED IN CHART. PATIENT LEFT WITH STABLE CONDITION VIA AMBULANCE WITH 2 EMT PRESENT.
== END 2022-04-15 16:30 | DRG 193 ==
LOC: ER 12:39 → MED 16:46 → TELE 17:50 → MED 04-10
PROVIDERS: ADMIT Registered Nurse; ATTEND Student in an Organized Health Care Education/Training Program
PROC: 05HB33Z Insertion of Infusion Device into Right Basilic Vein, Percutaneous Approach (ICD-10-PCS; 2022-04-10)
PROC: 0DH63UZ Insertion of Feeding Device into Stomach, Percutaneous Approach (ICD-10-PCS; principal; 2022-04-14)
DX: J15.9 Unspecified bacterial pneumonia (principal); R53.2 Functional quadriplegia; E87.0 Hyperosmolality and hypernatremia; J98.11 Atelectasis; J90 Pleural effusion, not elsewhere classified; R62.7 Adult failure to thrive; E86.0 Dehydration; Z20.822 Contact with and (suspected) exposure to COVID-19; I12.9 Hypertensive chronic kidney disease with stage 1 through stage 4 chronic kidney disease, or unspecified chronic kidney disease; K29.40 Chronic atrophic gastritis without bleeding; K21.9 Gastro-esophageal reflux disease without esophagitis; L89.319 Pressure ulcer of right buttock, unspecified stage; M24.561 Contracture, right knee; N18.9 Chronic kidney disease, unspecified; I25.2 Old myocardial infarction; K74.60 Unspecified cirrhosis of liver; M24.562 Contracture, left knee; L89.156 Pressure-induced deep tissue damage of sacral region; F03.90 Unspecified dementia, unspecified severity, without behavioral disturbance, psychotic disturbance, mood disturbance, and anxiety; Z91.018 Allergy to other foods; Z79.84 Long term (current) use of oral hypoglycemic drugs; R13.10 Dysphagia, unspecified; Y95 Nosocomial condition; Z79.899 Other long term (current) drug therapy; Z79.01 Long term (current) use of anticoagulants; D63.8 Anemia in other chronic diseases classified elsewhere; E11.22 Type 2 diabetes mellitus with diabetic chronic kidney disease; E87.8 Other disorders of electrolyte and fluid balance, not elsewhere classified; E88.09 Other disorders of plasma-protein metabolism, not elsewhere classified; I25.10 Atherosclerotic heart disease of native coronary artery without angina pectoris; Z86.73 Personal history of transient ischemic attack (TIA), and cerebral infarction without residual deficits; E87.6 Hypokalemia; L89.896 Pressure-induced deep tissue damage of other site
CPT/HCPCS: 36415; 43246; 70450-TC; 71045-TC; 74018; 80048-TC; 80076-TC; 81001; 82140-TC; 82962-TC; 83735-TC; 84100-TC; 84443-TC; 85025-TC; 85610-TC; 86850-TC; 87040-TC; 87081-TC; 87086-TC; 92526; 92611-TC; C9113; C9803; G0378; J0696; J1644; J3480; J3490; J7030; J7060; J7070